=== PATIENT | male | born 1955 | race Caucasian/White ===

== ENCOUNTER 2017-05-28 18:18 | Inpatient (IN) | payer OTHER ==
[~2017-05-28] VITALS: Ht 182.9 cm; Wt 77.1 kg
[2017-05-28 18:45] VITALS: BP_SYST 150
[2017-05-28 19:17] LABS: BASOPHILS # (AUTO) 0.2 K/uL (0.0-0.2); BASOPHILS % (AUTO) 1.3 % (0.0-2.0); EOSINOPHILS # (AUTO) 0.1 K/uL (0.0-0.4); EOSINOPHILS % (AUTO) 0.6 % (0.0-4.0); HEMATOCRIT 52.8 % (36-54); HEMOGLOBIN 17.6 g/dL (14.0-18.0); LYMPHOCYTES # (AUTO) 1.6 K/uL (1.0-5.5); LYMPHOCYTES % (AUTO) 13.5 % (20.5-51.5); MEAN CORPUSCULAR HEMOGLOBIN 30 pg (27-31); MEAN CORPUSCULAR HGB CONC 33 % (32-36); MEAN CORPUSCULAR VOLUME 89 fL (79.0-98.0); MONOCYTES # (AUTO) 0.7 K/uL (0.0-1.0); MONOCYTES % (AUTO) 5.4 % (1.7-9.3); NEUTROPHILS # (AUTO) 9.6 K/uL (1.8-7.7); NEUTROPHILS % (AUTO) 79.2 % (40.0-70.0); PLATELET COUNT (AUTO) 245 K/uL (130-430); RED BLOOD CELL COUNT(AUTO) 5.91 MIL/uL (4.2-6.2); RED CELL DISTRIBUTION WIDTH 12.6 % (9.0-15.0); WHITE BLOOD COUNT (AUTO) 12.2 K/uL (4.8-10.8)
[2017-05-28 19:32] LABS: INR 1.1 (0.80-1.20); PROTHROMBIN TIME 11.6 SECS (9.5-12.5)
[2017-05-28 19:34] LABS: ANION GAP 9 (5-15); CALCIUM 9.2 mg/dL (8.4-11.0); CHLORIDE 103 mmol/L (98-107); CREATININE 1.31 mg/dL (0.55-1.30); GLUCOSE 160 mg/dL (70-99); POTASSIUM 3.7 mmol/L (3.5-5.1); SODIUM SERUM 138 mmol/L (136-145); UREA NITROGEN, BLOOD 14 mg/dL (8-21)
[2017-05-28 19:40] LABS: GFR AFRICAN AMERICAN 72 mL/min (>90)
[2017-05-28 19:42] LABS: ALANINE AMINOTRANSFERASE 26 U/L (12-78); ALBUMIN 4.2 g/dL (3.4-4.8); ASPARTATE AMINOTRANSFERASE 20 U/L (10-37); TOTAL BILIRUBIN 1.2 mg/dL (0.0-1.0); TOTAL PROTEIN, SERUM 7.7 g/dL (6.4-8.3)
--- NOTE | 2017-05-28 21:45 | NUR ---
Patient to ER bed 03 to gown for evaluation. Side rails up. Report given to Torie
--- NOTE | 2017-05-28 22:00 | NUR ---
PT IN BED 3 WITH C/O GENERALIZED WEAKNESS , DR LEACH AWARE.
[2017-05-28] MEDS ORDERED: LORazepam 1 MG TABLET PO ONE (22:15)
--- NOTE | 2017-05-28 22:30 | NUR ---
ER at bedside examining patient.
[2017-05-28 22:50] LABS: BILIRUBIN,URINE NEGATIVE (NEGATIVE); BLOOD, URINE NEGATIVE (NEGATIVE); CLARITY/URINE CLEAR (CLEAR); COLOR,URINE YELLOW (YELLOW); GLUCOSE,URINE NEGATIVE (NEGATIVE); KETONES,URINE NEGATIVE (NEGATIVE); LEUKOCYTE ESTERASE ,URINE NEGATIVE (NEGATIVE); NITRITE, URINE NEGATIVE (NEGATIVE); PROTEIN URINE NEGATIVE (NEGATIVE); UROBILINOGEN,URINE 0.2 (0.2-1.0)
[2017-05-29] VITALS (7 sets, daily range): BP systolic 124–148
--- NOTE | 2017-05-29 00:30 | NUR ---
# 20 gauge angiocath placed to LAC. Use of asceptic technique. Opsite placed over site. Blood return noted. Blood for lab drawn from site. Flushed with 10 cc of normal saline. No evidence of infiltration noted. Patient tolerated well.
[2017-05-29] MEDS ORDERED: NACL 0.9% 1,000 ML IV ONE ×2 (01:00)
[2017-05-29] MEDS ORDERED: VANCOMYCIN HCL 1,000 MG in NS 250 ML IV ONE (01:00)
[2017-05-29] MEDS ORDERED: PIPERACILLIN/TAZO 3.375 GM in NS 50 ML IV ONE (01:00)
[2017-05-29] MEDS ORDERED: PIPERACILLIN/TAZOBACTAM 3.375 GM/VIAL (ZOSYN) IV ONE (01:36)
[2017-05-29] MEDS ORDERED: VANCOMYCIN HCL 1000 MG/VIAL IV ONE (01:36)
--- NOTE | 2017-05-29 02:30 | NUR ---
Patient will be admitted to care of DR HANDY. Admitted to MED/SURG unit. Will go to room 122A. Belongings list completed. Summary report printed. Report will be given at bedside.
--- NOTE | 2017-05-29 03:05 | NUR ---
PT TO M/S RM 121 VERBAL REPORT GIVEN TO EFFIE GOMEZ
--- NOTE | 2017-05-29 03:10 | NUR ---
Initial Notes Received patient laying in bed, awake, alert, oriented. Patient denies any acute distress or pain at this time. Breathing is even and unlabored. IV site patent/clean/dry. Educated patient on use of call light for assistance and fall precautions, patient verbalized understanding. Call light in hand.
--- NOTE | 2017-05-29 03:10 | NUR ---
ADMISSION NOTE Received patient from ER via [facility] UNDER THE CARE OF . Patient admitted with diagnosis of Generalized weakness. Patient is awake, alert, oriented X 4. Patient oriented to hospital room, call light, toileting, pain management and safety-teach back done. Patient informed that his nurse will be Turner and that his room number is 122a. Call light within reach. Will monitor patient closely.
[2017-05-29] MEDS: D5/0.45 NS 1,000 ML IV SCH (03:44)
--- NOTE | 2017-05-29 04:40 | NUR ---
Rounds Patient resting in bed with eyes closed, easily aroused. Patient denies any acute distress or pain at this time. Denies any needs. IV site patent/clean/dry. Call light in hand, fall precautions in place. Will continue to monitor.
--- NOTE | 2017-05-29 06:41 | NUR ---
Closing Notes Patient resting in bed with eyes closed, easily aroused. Patient denies any acute distress or pain at this time. Breathing is even and unlabored. IV site patent/clean/dry. Needs addressed throughout shift. Call light in hand, fall precautions in place. Will continue to monitor for changes and safety, and endorse all patient care/needs to oncoming nurse.
--- NOTE | 2017-05-29 07:50 | NUR ---
AM NOTES- in bed awake, alert and oriented. complain of moderate abdominal pain. medicated with norco. abdominal incision x3 dry and intact. with (+) bowel sounds. ambulate with assistant manager retail. ivf infusing well. denies any n/v. safety precaution. call light in reach. enc. to call at all times. will monitor. Addendum: 05/29/17 at [id number] by Rosalinda Webb RN wrong entry-please disregard above notes.
--- NOTE | 2017-05-29 07:50 | NUR ---
am notes- in bed awake, alert and oriented. denies any pain or discomfort. ambulate to the bathroom with steady gait. ivf infusing well. safety precaution observed. call light in reach. enc. to call for help as needed. will monitor.
[2017-05-29 09:04] LABS: BASOPHILS % (AUTO) 0.5 % (0.0-2.0); EOSINOPHILS # (AUTO) 0.2 K/uL (0.0-0.4); EOSINOPHILS % (AUTO) 1.9 % (0.0-4.0); HEMATOCRIT 47.2 % (36-54); HEMOGLOBIN 15.4 g/dL (14.0-18.0); LYMPHOCYTES # (AUTO) 1.2 K/uL (1.0-5.5); LYMPHOCYTES % (AUTO) 14.7 % (20.5-51.5); MEAN CORPUSCULAR HEMOGLOBIN 30 pg (27-31); MEAN CORPUSCULAR HGB CONC 33 % (32-36); MEAN CORPUSCULAR VOLUME 92 fL (79.0-98.0); MONOCYTES # (AUTO) 0.4 K/uL (0.0-1.0); MONOCYTES % (AUTO) 5.3 % (1.7-9.3); NEUTROPHILS # (AUTO) 6.3 K/uL (1.8-7.7); NEUTROPHILS % (AUTO) 77.6 % (40.0-70.0); PLATELET COUNT (AUTO) 192 K/uL (130-430); RED BLOOD CELL COUNT(AUTO) 5.11 MIL/uL (4.2-6.2); RED CELL DISTRIBUTION WIDTH 12.2 % (9.0-15.0)
[2017-05-29 09:07] LABS: WHITE BLOOD COUNT (AUTO) 8.1 K/uL (4.8-10.8)
[2017-05-29 09:21] LABS: CALCIUM 8.3 mg/dL (8.4-11.0); CREATININE 1.23 mg/dL (0.55-1.30); POTASSIUM 4.2 mmol/L (3.5-5.1)
[2017-05-29 09:50] LABS: ALBUMIN 3.2 g/dL (3.4-4.8); THYROID STIMULATING HORMONE 3.52 uIu/mL (0.34-4.82); TOTAL BILIRUBIN 1.4 mg/dL (0.0-1.0); TOTAL PROTEIN, SERUM 6.3 g/dL (6.4-8.3)
--- NOTE | 2017-05-29 10:19 | NUR ---
notes- resting in bed, breathing even and unlabored no distress noted. will monitor
--- NOTE | 2017-05-29 12:45 | NUR ---
notes eating lunch at this time. complain of on and off headache. no order of any medications at this time. offer to call the doctor, per pt he is fine at this time. will monitor.
--- NOTE | 2017-05-29 14:30 | NUR ---
notes- endorse care to PATRICIA Mccain. pt in bed, waiting for the Doctor to come. Inform pt that MD is here in the hospital and will see him soon.
[2017-05-29] MEDS ORDERED: traMADol HCL HCL 50 MG TABLET (ULTRAM) PO PRN (16:15)
[2017-05-29] MEDS ORDERED: ALPRAZolam 0.25 MG TABLET PO PRN (16:30)
--- NOTE | 2017-05-29 16:32 | NUR ---
CONSULT HEMATOLOGY PROSTATE CANCER DR ROSARIO [phone] DR REYNOSO REHABILITATION TECH S/W [facility] OFFICE @[id number]
[2017-05-29] MEDS: ACETAMINOPHEN 325 MG TABLET PO PRN (16:46)
--- NOTE | 2017-05-29 16:51 | NUR ---
CONSULT CARDIO CARDIAC W/U DR ELDER [phone] S/W [facility] OFFICE @[id number]
--- NOTE | 2017-05-29 18:20 | NUR ---
Patient is eating dinner, tolerated well, no signs of distress noted.
--- NOTE | 2017-05-29 20:00 | NUR ---
Initial Notes Received patient resting in bed, awake, alert, oriented, visitor at bedside. Patient denies any acute distress or pain at this time. Vital signs stable. Breathing is even and unlabored on room air. IV sites patent/clean/dry. Educated patient on use of call light for assistance and fall precautions, patient verbalized understanding. Call light in hand, will continue to monitor.
[2017-05-29] MEDS ORDERED: TEMAZEPAM 15 MG CAPSULE PO SCH (21:00)
--- NOTE | 2017-05-29 22:00 | NUR ---
Rounds Patient resting in bed, awake watching TV. Patient denies any acute distress or pain at this time. Breathing is even and unlabored. IV site patent/clean/dry. Dr. Stallings was in to see patient earlier. Orders for MRI of brain received. Patient able to answer MRI questionnaire and sign contrast consent, charted. Needs addressed. Call light in hand, will continue to monitor.
[2017-05-30] VITALS: BP_SYST 128
--- NOTE | 2017-05-30 | NUR ---
Rounds Patient resting in bed with eyes closed, easily aroused. Patient denies any acute distress or pain at this time. Breathing is even and unlabored. Needs addressed. Call light in hand, will continue to monitor.
[2017-05-30] MEDS: D5/0.45 NS 1,000 ML IV SCH ×3 (00:03→16:34)
--- NOTE | 2017-05-30 02:00 | NUR ---
Rounds Patient resting in bed with eyes closed. No acute distress noted, breathing is even and unlabored. IV site patent/clean/dry. Call light in hand, will continue to monitor.
[2017-05-30] MEDS: ACETAMINOPHEN 325 MG TABLET PO PRN ×2 (04:24→21:30)
--- NOTE | 2017-05-30 04:29 | NUR ---
Rounds Patient resting in bed with eyes closed, easily aroused. No distress noted, breathing even and unlabored. Medicated patient for headache per MD orders. IV site patent/clean/dry. Call light in hand, will continue to monitor.
[2017-05-30 04:59] VITALS: BP_SYST 135
--- NOTE | 2017-05-30 06:30 | NUR ---
Closing Notes Patient resting in bed with eyes closed, easily aroused. Patient denies any acute distress or pain at this time. Breathing is even and unlabored. IV site patent/clean/dry, no S/S infection/infiltration noted. Needs addressed throughout shift. Call light in hand, fall precautions in place. Will continue to monitor for changes and safety, and endorse all patient care/needs to oncoming nurse.
--- NOTE | 2017-05-30 07:44 | NUR ---
INITIAL NOTE RECEIVED PATIENT FROM INSTRUCTOR [employer]ATIC [employer] NURSE, PATIENT IS CURRENTLY RESTING IN BED, NO SIGNS OF DISTRESS NOTED, BREATHING IS EVEN AND UNLABORED, PATIENT IS ALERT AND ORIENTED, ASSESSMENT COMPLETE, PATIENT CURRENTLY HAS IV IN THE LEFT FOREARM, WITH FLUIDS INFUSING, NO SIGNS OF INFILTRATION NOTED, INSTRUCTED PATIENT TO USE CALL DSOUZA IF ASSISTANCE IS NEEDED, PATIENT VERBALIZED UNDERSTANDING, CALL DSOUZA LEFT NEXT TO PATIENT, HAND, BED IN LOWEST POSITION, SIDE RAILS UP, FALL PRECAUTIONS IN PLACE, WILL CONTINUE TO MONITOR PATIENT
[2017-05-30 08:02] VITALS: BP_SYST 120
--- NOTE | 2017-05-30 08:37 | NUR ---
RN ROUNDS PATIENT IS CURRENTLY GETTING 2D ECHO, NO OTHER NEEDS AT THIS TIME, WILL CONTINUE TO MONITOR.
--- NOTE | 2017-05-30 09:04 | NUR ---
Nutrition Update Stephane Scale 18 noted. Pt admitted for generalized weakness. Diet: regular BMI: 23.1 kg/m2 RD to follow per nutrition care standards.
--- NOTE | 2017-05-30 09:35 | NUR ---
RN ROUNDS PATIENT IS CURRENTLY BEING SEEN BY PT, WILL CONTINUE TO MONITOR PATIENT
--- NOTE | 2017-05-30 10:30 | NUR ---
RN ROUNDS PATIENT IS CURRENTLY RESTING IN BED, NO SIGNS OF DISTRESS NOTED, PATIENT HAS NO COMPLAINTS OF PAIN AT THIS TIME, CALL DSOUZA LEFT NEXT TO PATIENT'S HAND, BED IN LOWEST POSITION, WILL CONTINUE TO MONITOR, FALL PRECAUTIONS IN PLACE.
[2017-05-30 12:34] VITALS: BP_SYST 129
--- NOTE | 2017-05-30 12:51 | NUR ---
RN ROUNDS PATIENT LYING IN BED, STABLE CONDITION, NO OTHER NEEDS AT THIS TIME, WILL CONTINUE TO MONITOR.
--- NOTE | 2017-05-30 16:01 | NUR ---
RN ROUNDS PATIENT LYING IN BED WATCHING TV, PATIENT AWARE THAT [facility] CALLED AND STATED THEY WILL BE ON THE FLOOR SOON TO PICK HIM UP, PATIENT HAS NO PAIN OR DISCOMFORT AT THIS TIME, WILL CONTINUE TO MONITOR, FALL PRECAUTIONS IN PLACE
[2017-05-30 16:33] VITALS: BP_SYST 126
--- NOTE | 2017-05-30 17:54 | NUR ---
DR. SHANTAL AKERS NOTIFIED DR. AKERS WHO IS MANAGER [employer] FOR [facility] THAT PATIENT WAS NOT ABLE TO HAVE MRI DONE DUE METAL BEING IN FINGER, RADIOLOGIST STATED HE DID NOT FEEL SAFE WITH METAL BEING IN FINGER. NO NEW ORDERS, DR. AKERS STATED HE WILL TALK TO DR. RICHARD.
--- NOTE | 2017-05-30 18:38 | NUR ---
CLOSING NOTE PATIENT CURRENTLY RESTING IN BED, NO SIGNS OF DISTRESS NOTED, BREATHING IS EVEN AND UNLABORED, ALL NEEDS MET, WILL ENDORSE PATIENT TO TRIPPER NURSE, CALL DSOUZA LEFT NEXT TO PATIENT'S HAND, BED IN LOWEST POSITION, SIDE RAILS UP, FALL PRECAUTIONS IN PLACE.
--- NOTE | 2017-05-30 18:50 | NUR ---
DR. OLE HANDY AWARE THAT PATIENT IS NOT ABLE TO HAVE MRI, NO NEW ORDERS GIVEN
[2017-05-30 20:00] VITALS: BP_SYST 143
--- NOTE | 2017-05-30 20:00 | NUR ---
Initial RN Notes: Received pt in bed. AAOx4. No acute distress noted. VSS. Pt denies any dizziness or shortness of breath. Safety measures in place. Call light within reach. To monitor.
--- NOTE | 2017-05-30 21:10 | NUR ---
RN Rounds: Pt c/o headache 12/15. Medicated with Tylenol 650mg po PRN. Pt informed Xray of R middle finger per Dr. Correa's order. To monitor.
[2017-05-30] MEDS: TEMAZEPAM 15 MG CAPSULE PO SCH (22:32)
[2017-05-31 00:41] VITALS: BP_SYST 148
[2017-05-31 03:28] VITALS: BP_SYST 148
[2017-05-31] MEDS: ACETAMINOPHEN 325 MG TABLET PO PRN (05:36)
[2017-05-31 06:52] LABS: BASOPHILS % (AUTO) 0.4 % (0.0-2.0); EOSINOPHILS # (AUTO) 0.2 K/uL (0.0-0.4); EOSINOPHILS % (AUTO) 2.9 % (0.0-4.0); HEMATOCRIT 50.3 % (36-54); HEMOGLOBIN 16.4 g/dL (14.0-18.0); LYMPHOCYTES # (AUTO) 1.9 K/uL (1.0-5.5); LYMPHOCYTES % (AUTO) 22.7 % (20.5-51.5); MEAN CORPUSCULAR HEMOGLOBIN 30 pg (27-31); MEAN CORPUSCULAR HGB CONC 33 % (32-36); MEAN CORPUSCULAR VOLUME 92 fL (79.0-98.0); MONOCYTES # (AUTO) 0.7 K/uL (0.0-1.0); MONOCYTES % (AUTO) 7.9 % (1.7-9.3); NEUTROPHILS # (AUTO) 5.6 K/uL (1.8-7.7); NEUTROPHILS % (AUTO) 66.1 % (40.0-70.0); PLATELET COUNT (AUTO) 197 K/uL (130-430); RED BLOOD CELL COUNT(AUTO) 5.46 MIL/uL (4.2-6.2); RED CELL DISTRIBUTION WIDTH 12.5 % (9.0-15.0); WHITE BLOOD COUNT (AUTO) 8.4 K/uL (4.8-10.8)
[2017-05-31 07:14] LABS: ALBUMIN 3.6 g/dL (3.4-4.8); CALCIUM 8.9 mg/dL (8.4-11.0); CREATININE 1.19 mg/dL (0.55-1.30); POTASSIUM 3.7 mmol/L (3.5-5.1); TOTAL BILIRUBIN 1.5 mg/dL (0.0-1.0)
[2017-05-31 08:00] VITALS: BP_SYST 141
--- NOTE | 2017-05-31 08:00 | NUR ---
Initial RN Notes: Received pt in bed. AAOx4. No acute distress noted. VSS. Pt denies any dizziness or shortness of breath. Safety measures in place. Call light within reach. Will cont to monitor.
[2017-05-31] MEDS: D5/0.45 NS 1,000 ML IV SCH (10:13)
[2017-05-31 12:00] VITALS: BP_SYST 139
--- NOTE | 2017-05-31 12:00 | NUR ---
X-RAY OF THE FINGER DONE PER MD ORDER.
--- NOTE | 2017-05-31 16:00 | NUR ---
DENIES ANY S/S OF ANY ACUTE DISTRESS. WILL CONT TO MONITOR.
--- NOTE | 2017-05-31 16:04 | NUR ---
Surgery and Neuro consults: For Dr. Silveira, regarding FB in R third finger For Dr. Pimentel regarding dizziness Both ordered by Dr. Correa Spoke with Lavonne.
[2017-05-31 16:39] VITALS: BP_SYST 140
--- NOTE | 2017-05-31 18:30 | NUR ---
STATUS STABLE AT THIS TIME. WILL ENDORSE TO NOC SHIFT TO FOLLOWUP CARE.
--- NOTE | 2017-05-31 19:30 | NUR ---
CHANGE OF SHIFT: pt. awake, alert and oriented with visitor at bedside, just came back from Xray for cervical spine as endorsed by izabela Hernandez nurse. reconnected his IVF of D5 1/2 NS @ 60 ml/hr. Pt. on high fowlers position, denies any pain at this time. pt. informed me about Dr. Elizondo seen him and telling him about the removal of metal on his finger tomorrow to be able to do MRI of the brain, told pt. that will check for any schedule procedure and will let him know later. call light within reach.
[2017-05-31 19:54] VITALS: BP_SYST 150
--- NOTE | 2017-05-31 20:00 | NUR ---
NOTES: Dr. Duncan came and seen pt. no further order and MD aware of what the concern of the pt. informed charge nurse Reina about it and will talk to him on her rounds. pt. been up to restroom, would like to ambulate in the hallway per JARRELL Carreno, advised to go with pt. when he does.
--- NOTE | 2017-05-31 21:00 | NUR ---
NOTES: informed pt. that the only med schedule is a sleeping pill, asked to give @ 2300 since he is gonna be waken up for VS later.
--- NOTE | 2017-05-31 21:20 | NUR ---
NOTES: charge nurse Reina talked to pt. regarding the plan and informed him that he needs to be seen by Dr. Silveira for consult before any procedure to be done.
[2017-05-31] MEDS: TEMAZEPAM 15 MG CAPSULE PO SCH (22:26)
--- NOTE | 2017-05-31 22:30 | NUR ---
NOTES: remains awake, sleeping pill due given and will check VS around 2300.pt. needs attended.
[2017-06-01] VITALS (8 sets, daily range): BP systolic 112–143
--- NOTE | 2017-06-01 00:30 | NUR ---
NOTES: pt. sleeping when checked. IVF infusing. continue to monitor.
--- NOTE | 2017-06-01 01:45 | NUR ---
NOTES: pt. awakened coz IV alarming, change IV bag and changed wrapped on his IV site and put more padding with gauze so he would remind him not to bend. no complaints noted, will try to go back to sleep.
--- NOTE | 2017-06-01 04:00 | NUR ---
NOTES: pt. sound asleep, in no acute distress. IV infusing.
--- NOTE | 2017-06-01 06:15 | NUR ---
NOTES: pt. still sleeping when checked. IVF patent. awakened but went back to sleep. no acute distress. call light within reach.
--- NOTE | 2017-06-01 07:40 | NUR ---
report given to nurse Elsy, pt. already awake, also given info to nurse Majo covering for Elsy.
--- NOTE | 2017-06-01 08:00 | NUR ---
AM Initial Notes Pt aaox4 with no complaints of pain or discomfort at this time. No sob, difficulty breathing or distress noted. Educated about fall and safety precautions. Refused to have bed alarm armed. Pt close to nurse's station. Encouraged to call for assistance. Kept comfortable. Will monitor.
--- NOTE | 2017-06-01 10:05 | NUR ---
Surgery Pt left floor to surgery for metallic foreign body removal. Vital signs: T-98.2, P-79, R-18, BP-139/96, O2 sat-97%. Pt left floor via bed to surgery. No distress noted.
[2017-06-01] MEDS ORDERED: LR 1,000 ML IV SCH (10:33)
[2017-06-01] MEDS ORDERED: HYDROmorphone 1 MG INJ. 1 MG/ML AMPUL IVP PRN (10:45)
[2017-06-01] MEDS ORDERED: MEPERIDINE HCL/PF 25 MG/ML DISP.SYRIN IVP PRN ×2 (10:45)
[2017-06-01] MEDS ORDERED: ONDANSETRON HCL 4 MG/2 ML VIAL IVP PRN (10:45)
[2017-06-01] MEDS ORDERED: HYDROmorphone 2 MG/ML VIAL IVP PRN ×2 (10:45)
[2017-06-01] MEDS ORDERED: KETOROLAC TROMETHAMINE 30 MG VIAL IVP PRN (10:45)
--- NOTE | 2017-06-01 11:30 | NUR ---
Back from Surgery Pt back from surgery aaox4. No complaints of pain or discomfort. No distress noted. No dressing to incision site. Vital signs stable: T-97.3, P-62, R-18, BP-112/65, O2 sat-96%. Kept comfortable. Encouraged to call for assistance. Call light within reach. Will monitor.
[2017-06-01] MEDS ORDERED: GADOPENTETATE DIMEGLUMINE 15 ML VIAL IV ONE (12:54)
--- NOTE | 2017-06-01 14:39 | NUR ---
Rounds Pt awake resting in bed. No significant changes noted. Call light within reach. Will monitor.
--- NOTE | 2017-06-01 17:52 | NUR ---
Discharge Discharge patient with girlfriend. Transitional care instructions and handout explained and given. D/C IV and dressing applied. Vital signs stable. Pt left floor via wheelchair to private vehicle. No distress noted.
== END 2017-06-01 17:50 | disposition home or self-care (01) | DRG 872 ==
LOC: SED 18:18 → SMU 05-29 02:05
PROVIDERS: ADMIT Internal Medicine; ATTEND Internal Medicine
PROC: 0HCFXZZ Extirpation of Matter from Right Hand Skin, External Approach (ICD-10-PCS; principal; 2017-06-01 10:00)
DX: A41.9 Sepsis, unspecified organism (principal); S60.452A Superficial foreign body of right middle finger, initial encounter; F43.23 Adjustment disorder with mixed anxiety and depressed mood; I65.29 Occlusion and stenosis of unspecified carotid artery; F41.1 Generalized anxiety disorder; R51 Headache; T50.995A Adverse effect of other drugs, medicaments and biological substances, initial encounter; J34.1 Cyst and mucocele of nose and nasal sinus; R53.1 Weakness; G47.00 Insomnia, unspecified; Z85.46 Personal history of malignant neoplasm of prostate; Z90.79 Acquired absence of other genital organ(s); X58.XXXA Exposure to other specified factors, initial encounter; Y93.89 Activity, other specified; Y92.89 Other specified places as the place of occurrence of the external cause; Y99.8 Other external cause status
CPT/HCPCS: 36415; 70450-TC; 70553; 71020-TC; 72050-TC; 73140-TC; 80053; 81003; 83605; 84443-TC; 84484; 85025; 85610-TC; 85730-TC; 87040-TC; 88300; 93005; 93306; 93880; 96365; 99285; A9579; J2543; J3370; J7030

== ENCOUNTER 2017-08-21 07:43 | Emergency (ER) | payer OTHER ==
[~2017-08-21] VITALS: Ht 182.9 cm; Wt 77.1 kg
[2017-08-21 07:43] VITALS: BP_SYST 149
[2017-08-21] MEDS ORDERED: LORazepam 1 MG TABLET PO ONE (08:00)
[2017-08-21 09:30] VITALS: BP_SYST 135
== END 2017-08-21 09:30 | disposition home or self-care (01) ==
LOC: SED 07:43
DX: F41.9 Anxiety disorder, unspecified (principal); V43.52XA Car driver injured in collision with other type car in traffic accident, initial encounter; Y93.89 Activity, other specified; Y92.89 Other specified places as the place of occurrence of the external cause; Y99.8 Other external cause status
CPT/HCPCS: 99284